=== PATIENT | female | born 1940 | race Caucasian/White ===

== ENCOUNTER 2018-06-08 21:17 | Emergency (ER) | payer MEDICARE ==
[2018-06-08] MEDS ORDERED: LIDOCAINE 1%/EPINEPHRINE INJ 20 ML VIAL INJ ONE (21:38)
--- NOTE | 2018-06-08 22:16 | ER Document Report ---
ED Head/Face/Scalp Injury - General Mode of Arrival: Ambulatory Information source: Patient TRAVEL OUTSIDE OF THE [place] IN LAST 30 DAYS: No - General Chief Complaint: Head Injury without LOC Stated Complaint: HEAD INJURY Time Seen by Provider: 06/08/18 21:28 Notes: 77-year-old female who presents to the emergency department today with complaints of a head laceration. Patient was outside playing basketball with her grandson in clogs and tripped over her shoes hitting her head on a speed limit sign that was attached to the back of the basketball goal. Patient has a rather deep laceration that measures approximately 10 cm starting at the top of her forehead and it goes to the top of her scalp. Patient denies losing consciousness. Patient is on blood thinners. (JUN RIVERA) - Related Data Allergies/Adverse Reactions: No Known Allergies Allergy (Unverified 06/08/18 23:30) Past Medical History - General Information source: Patient - Social History Smoking Status: Never Smoker Cigarette use (# per day): No Chew tobacco use (# tins/day): No Frequency of alcohol use: Rare Drug Abuse: None Lives with: Family Family History: Reviewed & Not Pertinent Patient has suicidal ideation: No Patient has homicidal ideation: No - Past Medical History Cardiac Medical History: Reports: Hx Hypercholesterolemia Renal/ Medical History: Denies: Hx Peritoneal Dialysis GI Medical History: Reports: Hx Gastroesophageal Reflux Disease Review of Systems - Review of Systems Constitutional: No symptoms reported EENT: No symptoms reported Cardiovascular: No symptoms reported Respiratory: No symptoms reported Gastrointestinal: No symptoms reported Genitourinary: No symptoms reported Female Genitourinary: No symptoms reported Musculoskeletal: No symptoms reported Skin: See HPI, Other - head lac Hematologic/Lymphatic: No symptoms reported Neurological/Psychological: See HPI. denies: Lost consciousness -: Yes All other systems reviewed and negative Physical Exam - Vital signs Vitals: Temp Pulse Resp BP Pulse Ox 97.5 F 100 18 179/71 H 97 06/08/18 21:49 06/08/18 21:49 06/08/18 21:49 06/08/18 21:49 06/08/18 21:49 - Notes Notes: Notes Notes: Physical Exam: General: Alert, appears well. HEENT: Normocephalic. Large 10cm laceration beginning at the forwhead and going to the top of the scalp. PERRL. Extraocular movements intact. Oropharynx clear. Neck: Supple. Non-tender. Respiratory: No respiratory distress. Clear and equal breath sounds bilaterally. Cardiovascular: Regular rate and rhythm. Abdominal: Normal Inspection. Non-tender. No distension. Normal Bowel Sounds. Back: Non-tender. No deformity or step off. Extremities: Moves all four extremities. Upper extremities: Normal inspection. Normal ROM. Lower extremities: Normal inspection. No edema. Normal ROM. Neurological: Normal cognition. AAOx4. Normal speech. Psychological: Normal affect. Normal Mood. Skin: Warm. Dry. Normal color. (JUN RIVERA) (JUN RIVERA) Course - Re-evaluation Re-evalutation: 06/08/18 23:47 PROCEDURE: The patient has an 11 centimeter long laceration that is somewhat hockey-stick shaped with the curved portion located on the left mid forehead with a 3 cm length before reaching the hairline. The hair is extremely thin, making it difficult to discern exactly what is scalp and what is forehead facial skin. The wound was anesthetized with 12 mL's of 1% lidocaine with epinephrine locally. The wound was scrubbed with Shur-Clens. The wound was copiously irrigated with 30 mL's of normal saline. There was no debris seen in the wound. There was minimal debridement required. The skin on the forehead aspect approximated much easier after the scalp portion was stapled. The scalp was closed with 12 ree, the facial portion of the wound was closed with 10 5-0 nylon sutures. Bacitracin ointment and a sterile dressing was applied to the wound. (SHAHEEN PHILLIPS) - Vital Signs Vital signs: Temp Pulse Resp BP Pulse Ox 97.5 F 100 18 179/71 H 97 06/08/18 21:49 06/08/18 21:49 06/08/18 21:49 06/08/18 21:49 06/08/18 21:49 Discharge - Discharge Clinical Impression: Face lacerations Qualifiers: Encounter type: initial encounter Qualified Code(s): S01.81XA - Laceration without foreign body of other part of head, initial encounter Scalp laceration Qualifiers: Encounter type: initial encounter Qualified Code(s): S01.01XA - Laceration without foreign body of scalp, initial encounter Condition: Stable Disposition: HOME, SELF-CARE Additional Instructions: Facial Laceration: A laceration on the face usually heals quickly. Our treatment goal will be to avoid an unsightly scar or stitch-colunga. Your cut has been closed with the best techniques to avoid scarring, but a great deal depends on how well you protect the laceration -- and on your inherited tendency to scar. As facial cuts are usually caused by a blunt injury, it's usually best to rest for a day to avoid swelling. Do not allow any bumping or rubbing of the area. Keep the stitches dry. Follow the treatment plan the doctor has discussed with you and DO NOT DELAY getting the stitches out. Once stitches are removed, continue to protect the area from trauma and sunlight (use a sunscreen) for about six months. If any signs of infection occur (swelling, redness, increasing tenderness, red streaks, tender lumps in the neck or near the ear on the side of the laceration, or fever), see the doctor immediately. Keep the wound clean and place bacitracin ointment on the wound twice daily. Use ice packs to reduce swelling tonight. Take the pain medication is dispensed if needed. Take antibiotics as prescribed. Follow-up with your doctor at the end of the week to check your wound and determine when to remove the ree and sutures. RETURN TO THE EMERGENCY ROOM IF ANY NEW OR WORSENING SYMPTOMS. Prescriptions: Cephalexin Monohydrate [Keflex 500 mg Capsule] 500 mg PO QID #20 capsule Scribe Attestation: 06/08/18 23:13 I personally performed the services described in the documentation, reviewed and edited the documentation which was dictated to the scribe in my presence, and it accurately records my words and actions. (SHAHEEN PHILLIPS) Scribe Documentation - Scribe Written by Anh:: Anh Negron, 06/08/2018 [id number] acting as scribe for :: Charity
[2018-06-08] MEDS ORDERED: DIPH/PERTUSS(ACELL)/TETANUS VAC/PF 0.5 ML SYR (>=10YO) IM ONE (23:09)
[2018-06-08] MEDS ORDERED: CEPHALEXIN 500 MG CAPSULE PO ONE (23:09)
[2018-06-08] MEDS ORDERED: HYDROCODONE/ACETAMINOPHEN 5-325 MG (6 TAB/ER DISP) PO PRN (23:09)
[2018-06-09] VITALS: BP 143/70
== END 2018-06-09 00:24 | disposition home or self-care (01) ==
LOC: ER 21:17
PROC: 0HQ0XZZ Repair Scalp Skin, External Approach (ICD-10-PCS; principal; 2018-06-08)
DX: S01.01XA Laceration without foreign body of scalp, initial encounter (principal); S01.81XA Laceration without foreign body of other part of head, initial encounter; W01.198A Fall on same level from slipping, tripping and stumbling with subsequent striking against other object, initial encounter; Y93.67 Activity, basketball; E78.00 Pure hypercholesterolemia, unspecified; Z23 Encounter for immunization
CPT/HCPCS: 99283; 90471; 90715; 12005; A9270 ×2; J3490